=== PATIENT | female | born 1990 | race Caucasian/White ===

== ENCOUNTER 2016-05-28 06:18 | Inpatient (IN) | payer OTHER ==
[2016-05-28 07:03] LABS: BASOPHIL 0.4 % (0-2.0); EOSINOPHIL 1.4 % (0-4.5); MCHC 32.4 g/dl (32.0-36.0); MEAN CELL VOLUME 67.9 fl (80-96); MEAN PLT VOLUME 10.1 fl (7.5-11.1); NEUTROPHILS 49.7 % (42.8-82.8); PLATELET COUNT 145 K/MM3 (134-434); RDW 19.5 % (11.6-15.6); WHITE BLOOD COUNT 7.2 K/mm3 (4.0-10.0)
[2016-05-28 07:15] VITALS: BMI 30.4
[2016-05-28 07:15] LABS: INR 1.07 (0.82-1.09); PROTHROMBIN TIME (PATIENT) 11.8 SEC (9.98-11.88)
[2016-05-28] MEDS ORDERED: PROMETHAZINE HCL 25 MG/1 ML VIAL IVPUSH ONE (07:15)
[2016-05-28 07:18] LABS: ACTIVATED PTT 27.5 SECONDS (26.9-34.4)
[2016-05-28 07:41] LABS: CALCIUM 8.2 mg/dL (8.5-10.1); CREATININE 0.6 mg/dL (0.55-1.02)
--- NOTE | 2016-05-28 08:53 | PN ---
Progress Note (short form) - Note Progress Note: 8 am , cx full 100 vx -1 mr, fhr cat 1 op . irregular contraction , advised pitocin drip , will monitorfetal heart
--- NOTE | 2016-05-28 08:55 | PN ---
Progress Note (short form) - Note Progress Note: 830 patient moving, and pushing, difficult to monitor heart , scalp electrode applied, lt side , o2, fh cat 2
[2016-05-28] MEDS ORDERED: DEXTROSE 5%-LACTATED RINGERS 1,000 ML IV SCH (09:00)
--- NOTE | 2016-05-28 09:06 | HP ---
Past Medical History - Primary Care Physician PCP:: Tito Keys - Admission Chief Complaint: 38.5 weeks, labor History of Present Illness: 26 yo f , edc by sono 05/30/16, in labor on admission cx 5 cm 80 vx -2 ,mr , clear fluid , fhr cat 1 History Source: Patient Limitations to Obtaining History: No Limitations - Past Medical History ...: 4 ...Para: 1 ...Term: 1 ...Induced : 2 ...EDC by Sono: 05/30/16 - Past Surgical History Hx Myomectomy: No Hx Transabdominal Cerclage: No - Smoking History Smoking history: Never smoked Have you smoked in the past 12 months: No - Alcohol/Substance Use Hx Alcohol Use: No History of Substance Use: reports: None - Social History Usual Living Arrangement: Yes: With Spouse ADL: Independent History of Recent Travel: No Home Medications - Allergies Allergies/Adverse Reactions: Allergies Allergy/AdvReac Type Severity Reaction Status Date / Time No Known Allergies Allergy Verified 05/28/16 07:49 - Home Medications Home Medications: Ambulatory Orders Vitamins (Sjr) - 1 tab PO DAILY 11/30/13 Review of Systems - Review of Systems Constitutional: reports: No Symptoms Eyes: reports: No Symptoms HENT: reports: No Symptoms Neck: reports: No Symptoms Cardiovascular: reports: No Symptoms Respiratory: reports: No Symptoms Gastrointestinal: reports: No Symptoms Genitourinary: reports: No Symptoms Breasts: reports: No Symptoms Reported Musculoskeletal: reports: No Symptoms Integumentary: reports: No Symptoms Neurological: reports: No Symptoms Endocrine: reports: No Symptoms Hematology/Lymphatic: reports: No Symptoms Psychiatric: reports: No Symptoms Physical Exam - Maternity Vital Signs: Vital Signs Temperature 97.8 F 05/28/16 07:00 Pulse Rate 87 05/28/16 07:00 Respiratory Rate 20 05/28/16 07:00 Blood Pressure 138/81 05/28/16 07:00 O2 Sat by Pulse Oximetry (%) Constitutional: Yes: Well Nourished, No Distress, Calm Eyes: Yes: WNL, Conjunctiva Clear, EOM Intact HENT: Yes: WNL, Atraumatic, Normocephalic Neck: Yes: WNL, Supple, Trachea Midline Cardiovascular: Yes: WNL, Regular Rate and Rhythm Breast(s): Yes: WNL - Abdominal Exam/OB Number of Fetuses: Single Presentation: Vertex Contractions: Yes Regularity: Irregular Intensity: Mod/Strong Monitor Mode: External Heart Rate Location: [facility] Category: I Accelerations: Non-Uniform Decelerations: None - Vaginal Exam/OB Vaginal Bleediing: No Speculum Exam: No Dilatation (cm): 5 cm Effacement (%): 80 Amniotic Membrane Status: Ruptured Nitrazine Test: Positive Amniotic Fluid: Yes: Clear Presentation: Vertex/Position Station: -2 - Physical Exam Edema: Yes Edema: LLE: Trace, RLE: Trace Deep Tendon Reflex Grade: Normal +2 - Labs Lab Results: CBC, BMP 05/28/16 06:40 05/28/16 06:40 Hemorrhage Risk Assessment - Risk Factors Medium Risk Factors: Yes: None Risk Score: 1 Risk Level: Medium Risk Problem List - Problems (1) with 39 completed weeks gestation Code(s): Z3A.39 - 39 WEEKS GESTATION OF (2) Labor established Code(s): INO6081 - Assessment/Plan admit, fhm, pain management
[2016-05-28 10:10] LABS: ANISOCYTOSIS 1+; HYPOCHROMIA 1+; MICROCYTOSIS 2+
[2016-05-28] MEDS ORDERED: BISACODYL 10 MG SUPP.RECT RC PRN (10:12)
[2016-05-28] MEDS ORDERED: METHYLERGONOVINE MALEATE 0.2 MG/1 ML AMP IM PRN (10:12)
[2016-05-28] MEDS ORDERED: ACETAMINOPHEN 325 MG TABLET (FP) PO PRN (10:12)
[2016-05-28] MEDS ORDERED: BENZOCAINE 20% 57 GM BOTTLE TP PRN (10:12)
[2016-05-28] MEDS ORDERED: BENZOCAINE 28 GM HEMORRHOIDAL OINTMENT TP PRN (10:12)
[2016-05-28] MEDS ORDERED: WITCH HAZEL 50% (TUCKS) 40 PAD/JAR PAD TP PRN (10:12)
[2016-05-28] MEDS ORDERED: oxyCODONE HCL 5 MG TABLET PO PRN (10:12)
[2016-05-28] MEDS ORDERED: IBUPROFEN 600 MG TABLET (FP) PO PRN (10:12)
[2016-05-28] MEDS ORDERED: D5W-LR W/ 20 UNITS OXYTOCIN 1,000 ML IV SCH (10:15)
[2016-05-28 10:42] LABS: ARTERIAL BLD GAS O2 SATURATION 21.1 % (90-98.9); ARTERIAL BLOOD GAS BASE EXCESS 6.4 meq/l (-2-2); ARTERIAL BLOOD GAS HCO3 24.1 meq/L (22-26); PT. ON O2? no
[2016-05-28 10:43] LABS: ARTERIAL BLOOD GAS pH 7.17 (7.35-7.45)
[2016-05-28 10:44] LABS: ARTERIAL BLOOD GAS PO2 17.2 mmHg (80-100)
[2016-05-28 10:45] LABS: ARTERIAL BLOOD GAS BASE EXCESS 4.5 meq/l (-2-2); ARTERIAL BLOOD GAS HCO3 22.3 meq/L (22-26); ARTERIAL BLOOD GAS pH 7.28 (7.35-7.45)
[2016-05-28 10:46] LABS: ARTERIAL BLOOD GAS PO2 28.1 mmHg (80-100); PT. ON O2? NO
[2016-05-28 10:47] LABS: ARTERIAL BLD GAS O2 SATURATION 54.3 % (90-98.9)
[2016-05-28] MEDS ORDERED: IBUPROFEN 100 MG/5 ML UNIT DOSE CUPS PO ONE (12:40)
[2016-05-28] MEDS: IBUPROFEN 100 MG/5 ML UNIT DOSE CUPS PO PRN ×2 (14:17→23:21)
[2016-05-28] MEDS: FERROUS SO4 325 MG TABLET (FP) PO SCH ×2 (22:57→22:59)
[2016-05-28] MEDS: FERROUS SO4 300 MG/5 ML ORAL SOLN UNIT DOSE CUPS PO SCH (23:21)
[2016-05-28] MEDS: ACETAMINOPHEN 650 MG/20.3 ML ORAL SOLUTION (CUPS) PO PRN (23:21)
[2016-05-29 08:11] LABS: BASOPHIL 0.3 % (0-2.0); EOSINOPHIL 0.4 % (0-4.5); MCH 21.5 pg (25.7-33.7); MCHC 31.4 g/dl (32.0-36.0); MEAN CELL VOLUME 68.4 fl (80-96); MEAN PLT VOLUME 10.4 fl (7.5-11.1); NEUTROPHILS 60.5 % (42.8-82.8); PLATELET COUNT 141 K/MM3 (134-434); RDW 19.6 % (11.6-15.6); WHITE BLOOD COUNT 12.5 K/mm3 (4.0-10.0)
[2016-05-29] MEDS: FERROUS SO4 300 MG/5 ML ORAL SOLN UNIT DOSE CUPS PO SCH ×2 (10:23→22:45)
[2016-05-29] MEDS: PRENATAL VITAMINS W/ FOLIC ACID TABLET (FP) PO SCH (10:24)
[2016-05-29] MEDS: IBUPROFEN 100 MG/5 ML UNIT DOSE CUPS PO PRN ×2 (10:27→21:39)
--- NOTE | 2016-05-29 18:54 | PN ---
Progress Note (short form) - Note Progress Note: ppd 1. doing well, ambulating. no excess vaginal bleeding CBC, BMP 05/29/16 07:45 05/28/16 06:40 Last Vital Signs Temp Pulse Resp BP Pulse Ox 98.0 F 76 18 131/89 05/29/16 10:00 05/29/16 10:00 05/29/16 10:00 05/29/16 10:00 abdomen soft, no distension, no cva uterus firm, non tender perineum claen no calf tenderness plan ambulate , for d/c home in am Problem List - Problems (1) with 39 completed weeks gestation Code(s): Z3A.39 - 39 WEEKS GESTATION OF (2) Labor established Code(s): [id number] -
[2016-05-29] MEDS: ACETAMINOPHEN 650 MG/20.3 ML ORAL SOLUTION (CUPS) PO PRN (21:36)
[2016-05-29] MEDS ORDERED: SENNOSIDES/DOCUSATE COMBO (SENNA PLUS) TABLET (UD) PO PRN (22:00)
[2016-05-29 23:48] VITALS: TEMP 98.7
[2016-05-30 09:24] VITALS: BP 126/59; PULSE 77
[2016-05-30] MEDS: FERROUS SO4 300 MG/5 ML ORAL SOLN UNIT DOSE CUPS PO SCH (10:40)
[2016-05-30] MEDS: PRENATAL VITAMINS W/ FOLIC ACID TABLET (FP) PO SCH (10:43)
[2016-05-30] MEDS: ACETAMINOPHEN 650 MG/20.3 ML ORAL SOLUTION (CUPS) PO PRN (10:44)
[2016-05-30] MEDS: IBUPROFEN 100 MG/5 ML UNIT DOSE CUPS PO PRN (10:44)
== END 2016-05-30 15:19 | disposition home or self-care (01) | DRG 560 ==
LOC: JDEL 06:18 → JLDR 06:20 → J3W 11:10
PROVIDERS: ADMIT Obstetrics & Gynecology; ATTEND Obstetrics & Gynecology
PROC: 10E0XZZ Delivery of Products of Conception, External Approach (ICD-10-PCS; principal; 2016-05-28)
DX: O80 Encounter for full-term uncomplicated delivery (principal); Z3A.38 38 weeks gestation of pregnancy; Z37.0 Single live birth
CPT/HCPCS: 36415; 36600; 59409; 80048; 82803; 85025; 85610; 85730; 86593; 86850; 86900; 86901

== ENCOUNTER 2022-09-22 09:15 | Emergency (ER) | payer OTHER ==
[2022-09-22 09:37] VITALS: BP 132/78; PULSE 59; RESP 18; TEMP 98.1; BMI 31.6
[2022-09-22] MEDS ORDERED: KETOROLAC TROMETHAMINE 30 MG/1 ML VIAL ONE (10:57)
[2022-09-22] MEDS ORDERED: KETOROLAC TROMETHAMINE 30 MG/1 ML VIAL IM ONE (11:06)
== END 2022-09-22 11:39 | disposition home or self-care (01) ==
LOC: JER 09:15 → JERFT 09:15
PROC: 3E0233Z Introduction of Anti-inflammatory into Muscle, Percutaneous Approach (ICD-10-PCS; principal; 2022-09-22)
DX: M54.2 Cervicalgia (principal); G44.209 Tension-type headache, unspecified, not intractable; M62.830 Muscle spasm of back
CPT/HCPCS: 72050-TC-FY; 84703; 99284-25